=== PATIENT | female | born 1970 | race Caucasian/White ===

== ENCOUNTER 2023-05-20 06:19 | Day surgery (SDC) | payer MEDICAID ==
[2023-05-20] MEDS ORDERED: Lactated Ringers 1,000 ML IV SCH (07:00)
[2023-05-20] MEDS ORDERED: fentaNYL 100 MCG/2 ML SDV ONE (07:59)
[2023-05-20] MEDS ORDERED: Propofol 200 MG/20 ML SDV ONE ×3 (07:59→08:38)
[2023-05-20] MEDS ORDERED: Midazolam 1 MG/ML 2 ML SDV ONE (07:59)
== END 2023-05-20 09:35 | disposition home or self-care (01) ==
LOC: VM.SDS 06:19
PROVIDERS: ATTEND Student in an Organized Health Care Education/Training Program
DX: D12.2 Benign neoplasm of ascending colon (principal); D12.5 Benign neoplasm of sigmoid colon; D12.3 Benign neoplasm of transverse colon; I10 Essential (primary) hypertension; R73.03 Prediabetes; E66.9 Obesity, unspecified; J30.9 Allergic rhinitis, unspecified; M17.11 Unilateral primary osteoarthritis, right knee; I63.9 Cerebral infarction, unspecified; Z79.82 Long term (current) use of aspirin; F17.210 Nicotine dependence, cigarettes, uncomplicated; Z68.41 Body mass index [BMI] 40.0-44.9, adult; Z79.899 Other long term (current) drug therapy
CPT/HCPCS: 00811; J2250; J2704; J3010; J7120